=== PATIENT | female | born 1990 | race African-American/Black ===

== ENCOUNTER 2016-10-10 22:10 | Observation (INO) | payer SELFPAY ==
[~2016-10-10] VITALS: Ht 157.5 cm; Wt 56.0 kg
[~2016-10-10 22:10] MED LIST: FERR324T4 PO; IBUP600 PO; OXYC1SOL5 PO; PERI8.6T PO; PREN1CAP20 PO
[2016-10-10 22:20] VITALS: BP 114/65; PULSE 89; RESP 16; TEMP 97.9; O2SAT 95
--- NOTE | 2016-10-10 22:23 | PD ---
HPI . abdominal pain since this morning Chief Complaint: Abdominal Pain Time Seen by Provider: 22:23 Travel History International Travel<30 days: No Contact w/Intl Traveler<30days: No Traveled to known affect area: No History of Present Illness HPI 26-year-old female with no past medical history here with complaints of right sided abdominal pain that onset early this morning. Patient says she developed sudden onset abdominal pain 8/10 without any radiation other than the right side of her abdomen. Patient reports the pain is mainly located in the right upper quadrant, however an examination there is pain throughout her entire abdomen. She expresses to me that there is only pain on the right half of her abdomen. She denies any associated nausea or vomiting. She has no other complaints. She denies any chance of and tells me that her menstrual cycle started yesterday. PFSH Past Medical History Anemia: Yes ?: Not LMP: 10/09/16 : 5 Para: 4 Miscarriage: 0 : 0 Social History Alcohol Use: No Tobacco Use: No Substance Use: Yes (MARIJUANA DAILY) Allergies-Medications (Allergen,Severity, Reaction): Coded Allergies: No Known Allergies (Verified , 10/10/16) Reported Meds & Prescriptions Reported Meds & Active Scripts Active No Active Prescriptions or Reported Medications Review of Systems General / Constitutional: No: Fever Eyes: No: Visual changes HENT: No: Headaches Cardiovascular: No: Chest Pain or Discomfort Respiratory: No: Shortness of Breath Gastrointestinal: Positive: Abdominal Pain Genitourinary: No: Dysuria Musculoskeletal: No: Pain Skin: No Rash Neurologic: No: Weakness Psychiatric: No: Depression Endocrine: No: Polydipsia Hematologic/Lymphatic: No: Easy Bruising Physical Exam Narrative GENERAL: AAO x 3, no acute distress, Well-nourished, well-developed patient. SKIN: Warm and dry. No visible rashes or bruising. HEAD: Normocephalic and atraumatic. EYES: No scleral icterus. No injection or drainage. EOM intact, PERRLA ENT: No nasal drainage noted. Mucous membranes pink. Airway patent. Moist mucous membranes NECK: Supple, trachea midline. No JVD. CARDIOVASCULAR: Regular rate and rhythm without murmurs, gallops, or rubs. RESPIRATORY: Breath sounds equal bilaterally. No accessory muscle use. No rhonchi or rales. GASTROINTESTINAL: Abdomen soft, tenderness throughout the entire abdomen, more prominent in the right upper and right lower quadrant. There is guarding in the right upper quadrant. No rebound. EXTREMITIES: No cyanosis or edema. BACK: No obvious deformity. NEURO: CN II-12 intact, psychological anthropologist strength normal b/l, UE and LE 5/5, no focal deficits PSYCH: AAO x 3, normal affect. Data Data Last Documented VS Vital Signs Date Time Temp Pulse Resp B/P Pulse Ox O2 Delivery O2 Flow Rate FiO2 10/10/16 22:23 17 10/10/16 22:20 97.9 89 114/65 95 Orders Complete Blood Count With Diff (10/10/16 22:23) Comprehensive Metabolic Panel (10/10/16 22:23) Lipase (10/10/16 22:23) Urinalysis - C+S If Indicated (10/10/16 22:23) Ct Abd/Pel W Iv Contrast(Rout) (10/10/16 22:23) Iv Access Insert/Monitor (10/10/16 22:23) Ecg Monitoring (10/10/16 22:23) Oximetry (10/10/16 22:23) Sodium Chloride 0.9% Flush (Ns Flush) (10/10/16 22:30) Ed Urine Pregnancytest Poc (10/10/16 22:23) Ketorolac Inj (Toradol Inj) (10/10/16 22:30) Prothrombin Time / Inr (Pt) (10/10/16 22:33) Act Partial Throm Time (Ptt) (10/10/16 22:33) Iohexol 350 Inj (Omnipaque 350 Inj) (10/11/16 00:19) Place In Observation (10/11/16 ) Vital Signs (Adult) Q4H (10/11/16 00:58) Activity Oob With Assistance (10/11/16 00:58) Binder Coverstitch / Telemetry .CONTINUOUS (10/11/16 00:58) Diet Heart Healthy (10/11/16 Breakfast) Sodium Chloride 0.9% Flush (Ns Flush) (10/11/16 01:00) Sodium Chloride 0.9% Flush (Ns Flush) (10/11/16 09:00) Naloxone Inj (Narcan Inj) (10/11/16 01:00) Admit Order (Ed Use Only) (10/11/16 00:59) Simethicone Chew (Phazyme Chew) (10/11/16 01:00) Labs Laboratory Tests Test 10/10/16 23:00 Prothrombin Time 11.0 SEC Prothromb Time International 1.0 RATIO Ratio Activated Partial 26.7 SEC Thromboplast Time Sodium Level 138 MEQ/L Potassium Level 3.7 MEQ/L Chloride Level 107 MEQ/L Carbon Dioxide Level 22.2 MEQ/L Anion Gap 9 MEQ/L Blood Urea Nitrogen 14 MG/DL Creatinine 0.73 MG/DL Estimat Glomerular Filtration 116 ML/MIN Rate Random Glucose 94 MG/DL Calcium Level 9.1 MG/DL Total Bilirubin 0.7 MG/DL Aspartate Amino Transf 20 U/L (AST/SGOT) Alanine Aminotransferase 21 U/L (ALT/SGPT) Alkaline Phosphatase 54 U/L Total Protein 7.9 GM/DL Albumin 3.6 GM/DL Lipase 77 U/L White Blood Count 9.2 TH/MM3 Red Blood Count 4.30 MIL/MM3 Hemoglobin 9.6 GM/DL Hematocrit 30.6 % Mean Corpuscular Volume 71.0 FL Mean Corpuscular Hemoglobin 22.4 PG Mean Corpuscular Hemoglobin 31.5 % Concent Red Cell Distribution Width 16.8 % Platelet Count 372 TH/MM3 Mean Platelet Volume 8.1 FL Neutrophils (%) (Auto) 81.2 % Lymphocytes (%) (Auto) 9.6 % Monocytes (%) (Auto) 8.5 % Eosinophils (%) (Auto) 0.2 % Basophils (%) (Auto) 0.5 % Neutrophils # (Auto) 7.5 TH/MM3 Lymphocytes # (Auto) 0.9 TH/MM3 Monocytes # (Auto) 0.8 TH/MM3 Eosinophils # (Auto) 0.0 TH/MM3 Basophils # (Auto) 0.0 TH/MM3 CBC Comment DIFF FINAL Differential Comment MDM Medical Decision Making Medical Screen Exam Complete: Yes Emergency Medical Condition: Yes Medical Record Reviewed: Yes Differential Diagnosis Cholelithiasis, cholecystitis, appendicitis, colitis, diverticulitis, constipation, irritable bowel syndrome Narrative Course 26-year-old female here with sudden onset of abdominal pain in the right upper quadrant. On examination patient has diffuse abdominal tenderness to even very light palpation. She does demonstrate some guarding in the right upper quadrant. IV access was obtained, labs, UA and CT of the abdomen and pelvis have been ordered. She reports 8/10 pain. I provided her with some toradol here in the emergency department. Case has been discussed with Dr. Correa. He will make further recommendations pending workup and determine patient's disposition. Scripts No Active Prescriptions or Reported Meds Condition: Stable Angela Wise Oct 10, 2016 22:23
[2016-10-10] MEDS ORDERED: SODIUM CHLORIDE 0.9% FLUSH 10 ML FLUSH IV FLUSH PRN (22:30)
[2016-10-10] MEDS ORDERED: KETOROLAC TROMETHAMINE 30 MG/ML (IVP) VIAL IV PUSH ONE (22:30)
[2016-10-10 23:13] LABS: AUTOMATED NEUTROPHIL # 7.5 TH/MM3 (1.8-7.7); BASOPHIL % 0.5 % (0.0-2.0); EOSINOPHIL % 0.2 % (0.0-4.0); HEMATOCRIT 30.6 % (35.0-46.0); HEMO FLAGS DIFF FINAL; LYMPH % 9.6 % (9.0-44.0); LYMPHOCYTE # 0.9 TH/MM3 (1.0-4.8); MEAN CORPUSCULAR HEMOGLOBIN 22.4 PG (27.0-34.0); MEAN CORPUSCULAR HGB CONC 31.5 % (32.0-36.0); MONO % 8.5 % (0.0-8.0); NEUT % 81.2 % (16.0-70.0); PLATELET COUNT 372 TH/MM3 (150-450); RED CELL DISTRIBUTION WIDTH 16.8 % (11.6-17.2); WHITE BLOOD COUNT 9.2 TH/MM3 (4.0-11.0)
[2016-10-10 23:32] LABS: ANION GAP 9 MEQ/L (5-15); APTT (PATIENT) 26.7 SEC (24.3-30.1); AST (GOT) 20 U/L (15-37); BICARBONATE 22.2 MEQ/L (21.0-32.0); BLOOD UREA NITROGEN 14 MG/DL (7-18); CHLORIDE 107 MEQ/L (98-107); GLOMERULAR FILTRATION RATE 116 ML/MIN (>89); POTASSIUM 3.7 MEQ/L (3.5-5.1); SODIUM (NA) 138 MEQ/L (136-145)
[2016-10-10 23:35] LABS: ALKALINE PHOSPHATASE 54 U/L (45-117); ALT (GPT) 21 U/L (10-53); TOTAL BILIRUBIN ADULT 0.7 MG/DL (0.2-1.0)
[2016-10-11] VITALS (8 sets, daily range): BP systolic 99–115; BP diastolic 55–77; PULSE 75–88; RESP 16–20; TEMP 97.1–99.4; O2SAT 100
[2016-10-11] MEDS ORDERED: IOHEXOL 350 MG/ML 10 ML VIAL (for RAD DIAG) IV ONE (00:19)
--- NOTE | 2016-10-11 00:36 | RADRPT ---
EXAM DATE/TIME: 10/11/2016 00:11 [facility] COMPARISON: No previous studies available for comparison. INDICATIONS : Right side abdominal pain. IV CONTRAST: 100 cc Omnipaque 350 (iohexol) IV ORAL CONTRAST: No oral contrast ingested. RADIATION DOSE: 6.64 CTDIvol (mGy) MEDICAL HISTORY : None SURGICAL HISTORY : section. ENCOUNTER: Initial ACUITY: 1 day PAIN SCALE: 8/10 LOCATION: Right abdomen. TECHNIQUE: Volumetric scanning of the abdomen and pelvis was performed. Using automated exposure control and ad justment of the mA and/or kV according to patient size, radiation dose was kept as low as reasonably achievable to obtain optimal diagnostic quality images. DICOM format image data is available electro nically for review and comparison. FINDINGS: LOWER LUNGS: The visualized lower lungs are clear. LIVER: Homogeneous density without lesion. There is no dilation of the biliary tree. No calcified gallston es. SPLEEN: Normal size without lesion. PANCREAS: Within normal limits. KIDNEYS: Normal in size and shape. There is no mass, stone or hydronephrosis. ADRENAL GLANDS: Within normal limits. VASCULAR: There is no aortic aneurysm. BOWEL/MESENTERY: No evidence of bowel dilatation. No free air or free fluid. Appendix is not identified. Extensive gas is seen within small bowel lumen ABDOMINAL WALL: Within normal limits. RETROPERITONEUM: There is no lymphadenopathy. BLADDER: No wall thickening or mass. REPRODUCTIVE: Within normal limits. INGUINAL: There is no lymphadenopathy or hernia. MUSCULOSKELETAL: Prominent bilateral sacroiliitis with bone erosion and surrounding bony sclerosis. CONCLUSION: 1. Bilateral sacroiliitis. 2. Nonspecific bowel gas pattern with extensive gas in the small bowel lumen but no evidence of bowel dilatation. No free air or free fluid. Emery Garcia MD on October 11, 2016 at 0:22 Board Certified Radiologist. This report was verified electronically.
[2016-10-11] MEDS ORDERED: SODIUM CHLORIDE 0.9% FLUSH 10 ML FLUSH IV FLUSH PRN (01:00)
[2016-10-11] MEDS ORDERED: SIMETHICONE 125 MG CHEWABLE TAB PO ONE (01:00)
[2016-10-11] MEDS ORDERED: NALOXONE HCL 0.4 MG/ML AMP IV PRN (01:00)
--- NOTE | 2016-10-11 01:02 | PD ---
Data Data Last Documented VS Vital Signs Date Time Temp Pulse Resp B/P Pulse Ox O2 Delivery O2 Flow Rate FiO2 10/10/16 22:23 17 10/10/16 22:20 97.9 89 114/65 95 Orders Complete Blood Count With Diff (10/10/16 22:23) Comprehensive Metabolic Panel (10/10/16 22:23) Lipase (10/10/16 22:23) Urinalysis - C+S If Indicated (10/10/16 22:23) Ct Abd/Pel W Iv Contrast(Rout) (10/10/16 22:23) Iv Access Insert/Monitor (10/10/16 22:23) Ecg Monitoring (10/10/16 22:23) Oximetry (10/10/16 22:23) Sodium Chloride 0.9% Flush (Ns Flush) (10/10/16 22:30) Ed Urine Pregnancytest Poc (10/10/16 22:23) Ketorolac Inj (Toradol Inj) (10/10/16 22:30) Prothrombin Time / Inr (Pt) (10/10/16 22:33) Act Partial Throm Time (Ptt) (10/10/16 22:33) Iohexol 350 Inj (Omnipaque 350 Inj) (10/11/16 00:19) Place In Observation (10/11/16 ) Vital Signs (Adult) Q4H (10/11/16 00:58) Activity Oob With Assistance (10/11/16 00:58) Control Tower Operator / Telemetry .CONTINUOUS (10/11/16 00:58) Diet Heart Healthy (10/11/16 Breakfast) Sodium Chloride 0.9% Flush (Ns Flush) (10/11/16 01:00) Sodium Chloride 0.9% Flush (Ns Flush) (10/11/16 09:00) Naloxone Inj (Narcan Inj) (10/11/16 01:00) Labs Laboratory Tests Test 10/10/16 23:00 White Blood Count 9.2 TH/MM3 Red Blood Count 4.30 MIL/MM3 Hemoglobin 9.6 GM/DL Hematocrit 30.6 % Mean Corpuscular Volume 71.0 FL Mean Corpuscular Hemoglobin 22.4 PG Mean Corpuscular Hemoglobin 31.5 % Concent Red Cell Distribution Width 16.8 % Platelet Count 372 TH/MM3 Mean Platelet Volume 8.1 FL Neutrophils (%) (Auto) 81.2 % Lymphocytes (%) (Auto) 9.6 % Monocytes (%) (Auto) 8.5 % Eosinophils (%) (Auto) 0.2 % Basophils (%) (Auto) 0.5 % Neutrophils # (Auto) 7.5 TH/MM3 Lymphocytes # (Auto) 0.9 TH/MM3 Monocytes # (Auto) 0.8 TH/MM3 Eosinophils # (Auto) 0.0 TH/MM3 Basophils # (Auto) 0.0 TH/MM3 CBC Comment DIFF FINAL Differential Comment Prothrombin Time 11.0 SEC Prothromb Time International 1.0 RATIO Ratio Activated Partial 26.7 SEC Thromboplast Time Sodium Level 138 MEQ/L Potassium Level 3.7 MEQ/L Chloride Level 107 MEQ/L Carbon Dioxide Level 22.2 MEQ/L Anion Gap 9 MEQ/L Blood Urea Nitrogen 14 MG/DL Creatinine 0.73 MG/DL Estimat Glomerular Filtration 116 ML/MIN Rate Random Glucose 94 MG/DL Calcium Level 9.1 MG/DL Total Bilirubin 0.7 MG/DL Aspartate Amino Transf 20 U/L (AST/SGOT) Alanine Aminotransferase 21 U/L (ALT/SGPT) Alkaline Phosphatase 54 U/L Total Protein 7.9 GM/DL Albumin 3.6 GM/DL Lipase 77 U/L MDM Supervised Visit with MICHAEL: Yes Differential Diagnosis I, Dr. Correa, have reviewed the advance practice practitioner's documentation and am in agreement, met with the patient face to face, made the diagnosis, and the medical decision making was done by me. See her note for further details. Briefly this is a 26-year-old female was brought in by ambulance for evaluation of abdominal pain. Pain started in her right upper quadrant earlier today and is now more diffuse. She is currently on her menstrual period which started yesterday and she denies having any vaginal discharge other than some bleeding which is normal for her. On exam the patient has diffuse abdominal tenderness. There are no peritoneal signs. Vital signs show heart rate 89, blood pressure 114/65, pulse ox 95% on room air, oral temp of 97.9F. CBC shows WBC 9.2, hemoglobin 9.6, hematocrit 30.6, platelets 376, neutrophils 81%. CMP is unremarkable. Lipase is 77. Urine test is negative. CT abdomen pelvis: Bilateral sacroiliitis. Nonspecific bowel gas pattern with extensive gas in the small bowel lumen but no evidence of bowel dilatation. No free air or free fluid. Patient was given a dose of IV Toradol, and on reassessment she is sleeping in the position. When she wakes up she is clearly in pain and is complaining of pain throughout her entire abdomen. On exam she does have diffuse tenderness. Her abdomen is soft and nondistended. There are no peritoneal signs again. Given ongoing pain, I offered to observe the patient overnight for further treatment and evaluation. She is amenable to this plan. Case discussed with hospitalist Dr. Malik who will admit the patient to her service. Diagnosis Primary Impression: Intractable abdominal pain Admitting Information Admitting Physician Requests: Observation Scripts No Active Prescriptions or Reported Meds Condition: Stable Dre Correa MD Oct 11, 2016 01:02
[2016-10-11 04:02] LABS: BACTERIA, URINE OCC /hpf; BLOOD, URINE MOD (NEG); COMMENT (UR) CULTURE INDICATED; CULTURE IF INDICATED CULTURE INDICATED; GLUCOSE,URINE NEG (NEG); KETONE, URINE NEG (NEG); NITRITE,URINE NEG (NEG); SQUAMOUS EPITHELIAL CELL URINE 4 /hpf (0-5); URINE COLOR YELLOW (YELLW/STRAW)
--- NOTE | 2016-10-11 12:00 | PD.CONS ---
HPI History of Present Illness This is a 26 year old with pmh significant for chronic KAM who presents to the with complaints of acute onset of Right sided pain that started last night. The pain is described as sharp, severe constant. The pain is all over but worse on the right. Denies any other associated symptoms including nausea, vomiting, hematemesis, diarrhea, melena, change in bowels or wt loss. She denies blood thinner, NSAIDs or alcohol use. CT done and that showed 1. Bilateral sacroiliitis. 2. Nonspecific bowel gas pattern with extensive gas in the small bowel lumen but no evidence of bowel dilatation. No free air or free fluid. Labs remarkable for microcytic, hypochromic anemia hh 9.6/30.6. She never had EGD/colonoscopy before. Denies family hx of colon cancer. She was sleepy during the interview and had difficulty staying awake stating she hasn't been getting enough sleep. (Rachelle Arteaga) PFSH Past Medical History Anemia Past Surgical History non (Rachelle rAteaga) Coded Allergies: No Known Allergies (Verified , 10/10/16) Medications Current Medications Medications (Trade) Dose Ordered Sig/Ruddy Route Start Time Stop Time Status Last Admin (NS Flush) 2 ml UNSCH PRN IV FLUSH 10/11/16 01:00 (NS Flush) 2 ml BID IV FLUSH 10/11/16 09:00 (Narcan Inj) 0.4 mg UNSCH PRN IV 10/11/16 01:00 (Toradol Inj) 15 mg Q6H PRN IV PUSH 10/11/16 01:00 10/15/16 19:01 Family History No family hx of colon cancer Social History Alcohol Use: No Tobacco Use: No Substance Use: Yes (MARIJUANA DAILY) (Rachelle Arteaga) GI Exam Vitals I&O Vital Signs Date Time Temp Pulse Resp B/P Pulse Ox O2 Delivery O2 Flow Rate FiO2 10/11/16 08:47 99.4 83 18 104/65 100 10/11/16 03:00 88 10/11/16 02:54 98.5 81 16 107/67 100 10/10/16 22:23 17 10/10/16 22:20 97.9 89 16 114/65 95 Imaging Last Impressions Abdomen/Pelvis CT 10/10/16 4444 Signed Impressions: Service Date/Time: Tuesday, October 11, 2016 00:11 - CONCLUSION: 1. Bilateral sacroiliitis. 2. Nonspecific bowel gas pattern with extensive gas in the small bowel lumen but no evidence of bowel dilatation. No free air or free fluid. Emery Garcia MD Laboratory Test 10/10/16 10/11/16 23:00 01:45 Prothrombin Time 11.0 SEC Prothromb Time International 1.0 RATIO Ratio Activated Partial 26.7 SEC Thromboplast Time Sodium Level 138 MEQ/L Potassium Level 3.7 MEQ/L Chloride Level 107 MEQ/L Carbon Dioxide Level 22.2 MEQ/L Anion Gap 9 MEQ/L Blood Urea Nitrogen 14 MG/DL Creatinine 0.73 MG/DL Estimat Glomerular Filtration 116 ML/MIN Rate Random Glucose 94 MG/DL Calcium Level 9.1 MG/DL Total Bilirubin 0.7 MG/DL Aspartate Amino Transf 20 U/L (AST/SGOT) Alanine Aminotransferase 21 U/L (ALT/SGPT) Alkaline Phosphatase 54 U/L Total Protein 7.9 GM/DL Albumin 3.6 GM/DL Lipase 77 U/L White Blood Count 9.2 TH/MM3 Red Blood Count 4.30 MIL/MM3 Hemoglobin 9.6 GM/DL Hematocrit 30.6 % Mean Corpuscular Volume 71.0 FL Mean Corpuscular Hemoglobin 22.4 PG Mean Corpuscular Hemoglobin 31.5 % Concent Red Cell Distribution Width 16.8 % Platelet Count 372 TH/MM3 Mean Platelet Volume 8.1 FL Neutrophils (%) (Auto) 81.2 % Lymphocytes (%) (Auto) 9.6 % Monocytes (%) (Auto) 8.5 % Eosinophils (%) (Auto) 0.2 % Basophils (%) (Auto) 0.5 % Neutrophils # (Auto) 7.5 TH/MM3 Lymphocytes # (Auto) 0.9 TH/MM3 Monocytes # (Auto) 0.8 TH/MM3 Eosinophils # (Auto) 0.0 TH/MM3 Basophils # (Auto) 0.0 TH/MM3 CBC Comment DIFF FINAL Differential Comment Urine Color YELLOW Urine Turbidity CLEAR Urine pH 7.0 Urine Specific [place] GREATER THAN 1.050 Urine Protein 30 mg/dL Urine Glucose (UA) NEG mg/dL Urine Ketones NEG mg/dL Urine Occult Blood MOD Urine Nitrite NEG Urine Bilirubin NEG Urine Urobilinogen 2.0 MG/DL Urine Leukocyte Esterase TRACE Urine RBC 27 /hpf Urine WBC 8 /hpf Urine Squamous Epithelial 4 /hpf Cells Urine Bacteria OCC /hpf Microscopic Urinalysis Comment CULTURE INDICATED Date/Time Procedure Status Source Growth 10/11/16 01:45 Urine Culture Received Urine Clean Catch Pending Physical Examination HEENT: normocephalic; atraumatic; no jaundice. NECK: Neck is supple, no JVD, no lymphadenopathy. CHEST: Chest is clear to auscultation and percussion. CARDIAC: Regular rate and rhythm with no murmur gallop or rubs. ABDOMEN: Soft, nondistended, severe tenderness to touch, this is diffused but worse on the right ; no hepatosplenomegaly; bowel sounds are present in all four quadrants. EXTREMITIES: No clubbing, cyanosis, or edema. SKIN: Normal; no rash; no jaundice. PEST MANAGEMENT SUPERVISOR: alert and oriented times three. (Rachelle Arteaga) Assessment and Plan Plan - Acute onset of right sided abd pain- unclear etiology, labs normal except for anemia, CT with no evidence of acute abd issues complaints of acute onset of Right sided pain that started last night. The pain is described as sharp, severe constant. The pain is all over but worse on the right. Denies any other associated symptoms including nausea, vomiting, hematemesis, diarrhea, melena, change in bowels or wt loss. She denies blood thinner, NSAIDs or alcohol use. CT done and that showed 1. Bilateral sacroiliitis. 2. Nonspecific bowel gas pattern with extensive gas in the small bowel lumen but no evidence of bowel dilatation. No free air or free fluid. Labs remarkable for microcytic, hypochromic anemia hh 9.6/30.6. She never had EGD/colonoscopy before. Denies family hx of colon cancer. She was sleepy during the interview and had difficulty staying awake stating she hasn't been getting enough sleep. - Chronic KAM- Macrocytic, hypochromic anemia hh 9.6/30.6. CT as above, no bleeding reported, never had EGD/colonoscopy - Smokes weed daily- This could be aggravating her symptoms - Possible UTI, urine cx pending - Sacroiliitis per attending Plan: - JAUN - Will plan for EGD/colonoscopy on Friday - Obtain consents - Golytely on Friday - Clear liquids on Friday - NPO Friday mn - Stools for Hemoccult - Monitor hh - Transfuse as needed - Consider hematology consult pending results above - Might need CE, SBFT - Patient seen and examined by Dr. Sharma and myself and this note is written on his behalf. (Rachelle Arteaga) Physician Comments Patient seen and examined Agree with above Continue with current supportive care Monitor labs Plan for endoscopy on Friday (Ba Sharma MD) Rachelle Arteaga Oct 11, 2016 12:00 Ba Sharma MD Oct 11, 2016 18:58
[2016-10-11] MEDS: SODIUM CHLORIDE 0.9% FLUSH 10 ML FLUSH IV FLUSH SCH ×2 (15:14→20:17)
--- NOTE | 2016-10-11 15:22 | HHI.HP ---
HPI Service [facility] Primary Care Physician No Primary Care Physician Admission Diagnosis Intractable abdominal pain Diagnoses: Chief Complaint: Abdominal pain Travel History International Travel<30 Days: No Contact w/Intl Traveler <30 Da: No Traveled to Known Affected Are: No History of Present Illness Written by Alli Blanco, acting as scribe for Dr. Gómez on 10/11/16 at 15:04. This note was transcribed by [email or web address] Ring. I, Dr. Jabier Gómez personally performed the history, physical exam, and medical decision making; and confirmed the accuracy of the information in the transcribed note. Authenticated by Dr. Jabier Gómez on 10/11/16 at 16:30. 26-year-old female with no significant past medical history who presented with abdominal pain. The patient states that yesterday morning she began having lower right abdominal discomfort. She denies any fever, chills, nausea, vomiting, diarrhea. She's been having normal stools, denies any bleeding. She' s been tolerating oral intake today. She started menstrual cycle 2 days ago. GI has evaluated the patient and is planning on EGD and colonoscopy, patient is agreeable. Review of Systems Except as stated in HPI: all other systems reviewed are Neg Past Family Social History Past Medical History None Past Surgical History Reported Medications None Allergies: Coded Allergies: No Known Allergies (Verified , 10/10/16) Active Ordered Medications Current Medications Medications (Trade) Dose Ordered Sig/Ruddy Route Start Time Stop Time Status Last Admin (NS Flush) 2 ml UNSCH PRN IV FLUSH 10/11/16 01:00 (NS Flush) 2 ml BID IV FLUSH 10/11/16 09:00 (Narcan Inj) 0.4 mg UNSCH PRN IV 10/11/16 01:00 (Toradol Inj) 15 mg Q6H PRN IV PUSH 10/11/16 01:00 10/15/16 19:01 (Colyte Liq) 4,000 ml ONCE ONCE PO 10/13/16 16:00 10/13/16 16:01 Family History Reviewed, no family history pertinent to current chief complaint Social History Patient denies any alcohol, tobacco, or drug use Physical Exam Vital Signs Vital Signs Date Time Temp Pulse Resp B/P Pulse Ox O2 Delivery O2 Flow Rate FiO2 10/11/16 12:04 99.0 81 16 99/55 100 10/11/16 08:47 99.4 83 18 104/65 100 10/11/16 03:00 88 10/11/16 02:54 98.5 81 16 107/67 100 10/10/16 22:23 17 10/10/16 22:20 97.9 89 16 114/65 95 Physical Exam GENERAL: Well-developed well-nourished. In no acute distress. SKIN: Warm and dry. No lesions noted. HEENT: Normocephalic. Pupils equal and round. Mucous membranes pink and moist. CARDIOVASCULAR: Regular rate and rhythm. No murmur appreciated. RESPIRATORY: No accessory muscle use. Clear to auscultation. Breath sounds equal bilaterally. GASTROINTESTINAL: Abdomen soft, nondistended. Moderate generalized TTP. Bowel sounds x4. MUSCULOSKELETAL: No obvious deformities. No clubbing or cyanosis. No edema. NEUROLOGICAL: Awake and alert. No focal neurological deficits. Moves upper and lower extremities spontaneously. Normal speech. PSYCHIATRIC: Appropriate mood and affect; insight and judgment normal. Laboratory Laboratory Tests Test 10/10/16 10/11/16 23:00 01:45 Prothrombin Time 11.0 Prothromb Time International 1.0 Ratio Activated Partial 26.7 Thromboplast Time Sodium Level 138 Potassium Level 3.7 Chloride Level 107 Carbon Dioxide Level 22.2 Anion Gap 9 Blood Urea Nitrogen 14 Creatinine 0.73 Estimat Glomerular Filtration 116 Rate Random Glucose 94 Calcium Level 9.1 Total Bilirubin 0.7 Aspartate Amino Transf 20 (AST/SGOT) Alanine Aminotransferase 21 (ALT/SGPT) Alkaline Phosphatase 54 Total Protein 7.9 Albumin 3.6 Lipase 77 White Blood Count 9.2 Red Blood Count 4.30 Hemoglobin 9.6 Hematocrit 30.6 Mean Corpuscular Volume 71.0 Mean Corpuscular Hemoglobin 22.4 Mean Corpuscular Hemoglobin 31.5 Concent Red Cell Distribution Width 16.8 Platelet Count 372 Mean Platelet Volume 8.1 Neutrophils (%) (Auto) 81.2 Lymphocytes (%) (Auto) 9.6 Monocytes (%) (Auto) 8.5 Eosinophils (%) (Auto) 0.2 Basophils (%) (Auto) 0.5 Neutrophils # (Auto) 7.5 Lymphocytes # (Auto) 0.9 Monocytes # (Auto) 0.8 Eosinophils # (Auto) 0.0 Basophils # (Auto) 0.0 CBC Comment DIFF FINAL Differential Comment Urine Color YELLOW Urine Turbidity CLEAR Urine pH 7.0 Urine Specific [place] GREATER THAN 1.050 Urine Protein 30 Urine Glucose (UA) NEG Urine Ketones NEG Urine Occult Blood MOD Urine Nitrite NEG Urine Bilirubin NEG Urine Urobilinogen 2.0 Urine Leukocyte Esterase TRACE Urine RBC 27 Urine WBC 8 Urine Squamous Epithelial 4 Cells Urine Bacteria OCC Microscopic Urinalysis Comment CULTURE INDICATED Date/Time Procedure Status Source Growth 10/11/16 01:45 Urine Culture Received Urine Clean Catch Pending Result Diagram: 10/10/16229910/10/162299 Imaging Last Impressions Abdomen/Pelvis CT 10/10/162222 Signed Impressions: Service Date/Time: Tuesday, October 11, 2016 00:11 - CONCLUSION: 1. Bilateral sacroiliitis. 2. Nonspecific bowel gas pattern with extensive gas in the small bowel lumen but no evidence of bowel dilatation. No free air or free fluid. Emery Garcia MD Assessment and Plan Assessment and Plan 26-year-old female with no significant past medical history who presented with abdominal pain Intractable abdominal pain: Unclear etiology. Reviewed: Abdominal CT showed nonspecific bowel gas pattern and sacroiliitis. Afebrile with no leukocytosis. Lipase and LFTs within normal limits. -GI consulted, planning on EGD and colonoscopy -Stool Hemoccult ordered -Check abdominal ultrasound to rule out appendicitis or cholecystitis -IV Toradol as needed for pain -Start oral Protonix Microcytic anemia: Chronic. Hemoglobin 9.6, previously 7.7 on 11/05/15. -Check iron studies -Follow up CBC Abnormal UA: UA with moderate blood and increased RBCs, likely secondary to menstruation. -Follow up urine culture DVT prophylaxis: SCDs Discussed Condition With Patient Alli Blanco Oct 11, 2016 15:22 Sumeet Gómez DO Oct 11, 2016 16:30
--- NOTE | 2016-10-11 17:44 | RADRPT ---
EXAM DATE/TIME: 10/11/2016 17:18 [facility] COMPARISON: CT ABDOMEN & PELVIS W CONTRAST, October 11, 2016, 0:11. INDICATIONS : Right lower quadrant pain. MEDICAL HISTORY : . Anxiety. Anemia. Blood transfusion. SURGICAL HISTORY : section. ENCOUNTER: Initial ACUITY: 1 day PAIN SCORE: 10/10 LOCATION: Right lower quadrant AREA EVALUATED: Right lower quadrant. FINDINGS: The appendix is not seen CONCLUSION: Inconclusive Erick Kaur MD on October 11, 2016 at 17:41 Board Certified Radiologist. This report was verified electronically.
[2016-10-11] MEDS: PANTOPRAZOLE SOD 40 MG DELAYED RELEASE TAB PO SCH (17:57)
[2016-10-11] MEDS: KETOROLAC TROMETHAMINE 30 MG/ML (IVP) VIAL IV PUSH PRN (17:58)
--- NOTE | 2016-10-11 18:01 | RADRPT ---
EXAM DATE/TIME: 10/11/2016 17:06 [facility] COMPARISON: No previous studies available for comparison. INDICATIONS : Right upper quadrant pain. MEDICAL HISTORY : . Anxiety. Anemia. Blood transfusion. SURGICAL HISTORY : section. ENCOUNTER: Initial ACUITY: 1 day PAIN SCORE: 9/10 LOCATION: Right upper quadrant MEASUREMENTS: LIVER: 15.1 cm length COMMON DUCT: 2 mm RIGHT KIDNEY: 10.3 x 6.2 x 4.2 cm FINDINGS: The gallbladder is intact without any evidence for gallstones, gallbladder wall thickening, or perich olecystic fluid. The visualized liver, head of the pancreas, and right kidney appear grossly intact for technique. There is a small 3-4 mm gallbladder wall polyp. CONCLUSION: Probable gallbladder wall polyp. Sudhakar Saucedo MD on October 11, 2016 at 17:59 Board Certified Radiologist. This report was verified electronically.
[2016-10-11 20:51] LABS: AUTOMATED NEUTROPHIL # 3.3 TH/MM3 (1.8-7.7); BASOPHIL % 0.4 % (0.0-2.0); EOSINOPHIL # 0.1 TH/MM3 (0-0.4); EOSINOPHIL % 1.8 % (0.0-4.0); HEMATOCRIT 29.3 % (35.0-46.0); HEMO FLAGS DIFF FINAL; LYMPH % 23.8 % (9.0-44.0); LYMPHOCYTE # 1.2 TH/MM3 (1.0-4.8); MEAN CELL VOLUME 71.8 FL (80.0-100.0); MEAN CORPUSCULAR HEMOGLOBIN 22.2 PG (27.0-34.0); MEAN CORPUSCULAR HGB CONC 30.9 % (32.0-36.0); MONO % 10.4 % (0.0-8.0); NEUT % 63.6 % (16.0-70.0); PLATELET COUNT 384 TH/MM3 (150-450); RED BLOOD COUNT 4.08 MIL/MM3 (4.00-5.30); RED CELL DISTRIBUTION WIDTH 17.1 % (11.6-17.2); WHITE BLOOD COUNT 5.1 TH/MM3 (4.0-11.0)
[2016-10-11 21:06] LABS: BICARBONATE 24.4 MEQ/L (21.0-32.0)
[2016-10-11] MEDS ORDERED: POTASSIUM CHLORIDE 25 MEQ EFFERVESCENT TAB PO ONE (22:45)
[2016-10-12] VITALS (8 sets, daily range): BP systolic 94–111; BP diastolic 54–72; PULSE 52–84; RESP 16–20; TEMP 97.5–98.9; O2SAT 98–100
[2016-10-12] MEDS: KETOROLAC TROMETHAMINE 30 MG/ML (IVP) VIAL IV PUSH PRN (03:01)
[2016-10-12 06:54] LABS: ANION GAP 6 MEQ/L (5-15); BICARBONATE 23.8 MEQ/L (21.0-32.0); BLOOD UREA NITROGEN 12 MG/DL (7-18); CHLORIDE 109 MEQ/L (98-107); FERRITIN 35 NG/ML (8-252); GLOMERULAR FILTRATION RATE 188 ML/MIN (>89); POTASSIUM 4.1 MEQ/L (3.5-5.1); SODIUM (NA) 139 MEQ/L (136-145); TRANSFERRIN IRON PROFILE 254 MG/DL (200-360)
[2016-10-12] MEDS ORDERED: FERROUS SULFATE 325 MG (65 MG ELEMENTAL IRON) TAB PO SCH (09:00)
[2016-10-12] MEDS: SODIUM CHLORIDE 0.9% FLUSH 10 ML FLUSH IV FLUSH SCH (10:31)
[2016-10-12] MEDS: PANTOPRAZOLE SOD 40 MG DELAYED RELEASE TAB PO SCH (10:31)
--- NOTE | 2016-10-12 10:37 | HHI.PR ---
Subjective Remarks Follow-up for abdominal pain. The patient reports resolution of her symptoms overnight. She denies any further abdominal pain. She has been tolerating diet. She denies any diarrhea or constipation. She denies any dysuria. She states that she actually has health insurance, and would rather follow up outpatient with gastroenterology if possible. Objective Vitals Vital Signs Date Time Temp Pulse Resp B/P Pulse Ox O2 Delivery O2 Flow Rate FiO2 10/12/16 09:04 98.7 74 16 111/71 100 10/12/16 05:20 98.9 56 20 105/68 100 10/12/16 04:52 69 10/12/16 03:36 52 10/12/16 01:47 71 109/72 10/12/16 01:30 97.6 75 19 94/54 98 10/11/16 23:34 75 10/11/16 19:41 97.1 75 20 102/61 100 10/11/16 16:48 99.4 76 18 115/77 100 10/11/16 12:04 99.0 81 16 99/55 100 Result Diagram: 10/11/16 1908 10/12/16 0543 Imaging Last Impressions Gall Bladder Ultrasound 10/11/16 1515 Signed Impressions: Service Date/Time: Tuesday, October 11, 2016 17:06 - CONCLUSION: Probable gallbladder wall polyp. K. Po Saucedo MD Abdomen Ultrasound 10/11/16 0000 Signed Impressions: Service Date/Time: Tuesday, October 11, 2016 17:18 - CONCLUSION: Inconclusive Erick Kaur MD Abdomen/Pelvis CT 10/10/16 2223 Signed Impressions: Service Date/Time: Tuesday, October 11, 2016 00:11 - CONCLUSION: 1. Bilateral sacroiliitis. 2. Nonspecific bowel gas pattern with extensive gas in the small bowel lumen but no evidence of bowel dilatation. No free air or free fluid. Emery Garcia MD Objective Remarks GENERAL: Well-developed well-nourished thin patient. In no acute distress. SKIN: Warm and dry. No lesions noted. HEENT: Normocephalic. Pupils equal and round. Mucous membranes pink and moist. CARDIOVASCULAR: Regular rate and rhythm. No murmur appreciated. RESPIRATORY: No accessory muscle use. Clear to auscultation. Breath sounds equal bilaterally. GASTROINTESTINAL: Abdomen soft, non-tender, nondistended. Bowel sounds x4. MUSCULOSKELETAL: No obvious deformities. No clubbing or cyanosis. No edema. NEUROLOGICAL: Awake and alert. No focal neurological deficits. Moves upper and lower extremities spontaneously. Normal speech. PSYCHIATRIC: Appropriate mood and affect; insight and judgment normal. A/P Assessment and Plan 26-year-old female with no significant past medical history who presented with abdominal pain Intractable abdominal pain: Unclear etiology, although timing could suggest due to menstrual cramps. Symptoms resolved. Reviewed: Abdominal CT showed nonspecific bowel gas pattern and sacroiliitis. Afebrile with no leukocytosis. Lipase and LFTs within normal limits. Abdominal ultrasound showed gallbladder wall polyp, non-visualization of the appendix, otherwise unremarkable. -GI consulted, recommended EGD and colonoscopy -Continue Protonix Microcytic anemia: Chronic. Hemoglobin 9.6, previously 7.7 on 11/05/15. -Iron studies suggestive of KAM, start supplementation -Hemoglobin stable on repeat CBC Abnormal UA: UA appears contaminated with moderate blood, 4 squamous epithelial cells, and increased RBCs. Afebrile with no leukocytosis. Doubt infection, likely secondary to menstruation. -Follow up urine culture - showed mixed melania, no indication for antibiotics Hypokalemia: Potassium was 3.8. Replace orally. Potassium now 4.1. Magnesium within normal limits. Resolved. DVT prophylaxis: SCDs Discharge Planning Discussed with Dr. Gómez Discharge patient to home Condition on discharge: Improved Regular Diet as tolerated Regular activity Rx written: Protonix, ferrous sulfate Follow-up with primary care physician and gastroenterology Alli Blanco Oct 12, 2016 10:37 Alli Blanco Oct 12, 2016 10:37
[2016-10-12] MEDS ORDERED: FERR325T20 PO (10:38)
[2016-10-12] MEDS ORDERED: PANT40TA3 PO (10:38)
[2016-10-13] MEDS ORDERED: CARA1TAB6 PO (01:39)
[2016-10-13] MEDS ORDERED: PROT40TA PO (01:39)
[2016-10-13] MEDS ORDERED: DICY10 PO (01:39)
[2016-10-13] MEDS ORDERED: PEG (High)/E-LYTE SOLN 4000 ML BTL PO ONE (16:00)
== END 2016-10-12 14:38 | disposition home or self-care (01) ==
LOC: NEPC 22:10 → NEDA 10-11 01:00 → NEPGCP 10-11 02:46
PROVIDERS: ADMIT Hospitalist; ATTEND Hospitalist
DX: E87.6 Hypokalemia (principal); F12.90 Cannabis use, unspecified, uncomplicated; D50.9 Iron deficiency anemia, unspecified; M46.1 Sacroiliitis, not elsewhere classified
CPT/HCPCS: 74177; 76705; 80048; 80053; 81001; 82728; 83540; 83550; 83690; 83735; 84703; 85025; 85610; 85730; 87086; 96374; 99285; G0378; J1885; Q9967

== ENCOUNTER 2016-10-12 22:56 | Emergency (ER) | payer SELFPAY ==
[~2016-10-12] VITALS: Ht 157.5 cm; Wt 42.2 kg
[~2016-10-12 22:56] MED LIST changes: -FERR324T4 PO; +FERR325T20 PO; -IBUP600 PO; -OXYC1SOL5 PO; +PANT40TA3 PO; -PERI8.6T PO; -PREN1CAP20 PO
[2016-10-12 22:57] VITALS: BP 99/52; PULSE 93; RESP 16; TEMP 99.8; O2SAT 97
[2016-10-12] MEDS ORDERED: SODIUM CHLOR 0.9% 1000 ML INJ 1,000 ML IV SCH (23:32)
--- NOTE | 2016-10-12 23:40 | PD ---
HPI Chief Complaint: Abdominal Pain Time Seen by Provider: 23:23 Travel History International Travel<30 days: No Contact w/Intl Traveler<30days: No Traveled to known affect area: No History of Present Illness HPI 26-year-old female complains of abdominal pain with nausea vomiting. Patient states that the symptoms started 2 days ago. Patient was seen in emergency room and admitted overnight for intractable abdominal pain. CT abdomen and pelvis and blood tests were unremarkable. Patient was discharged home this morning. Patient was given prescription for iron pills and Protonix. Patient has not filled the prescriptions. Patient states that the pain cramping pain and sharp pain most localized around the epigastric upper abdomen. Patient denies any pain radiation. Patient denies any fever chills. Patient denies any dysuria or frequency. Patient denies any vaginal discharge or bleeding. Patient states that the pain has been intermittent. On a scale of 1-10 the pain is a 10. PFSH Past Medical History Anemia: Yes Blood Disorders: No Anxiety: Yes Depression: No Heart Rhythm Problems: No Cancer: No Cardiovascular Problems: No High Cholesterol: No Chest Pain: No Congestive Heart Failure: No Endocrine: No Genitourinary: No Immune Disorder: No Musculoskeletal: No Neurologic: No Reproductive: Yes Respiratory: No Thyroid Disease: No ?: Not LMP: 10/12/16 : 7 Para: 8 Miscarriage: 0 : 0 Past Surgical History Abdominal Surgery: Yes (C-SECT) Section: Yes Other Surgery: Yes (c-s x 1 2015) Social History Alcohol Use: No Tobacco Use: No Substance Use: Yes (MARIJUANA rarely) Allergies-Medications (Allergen,Severity, Reaction): Coded Allergies: No Known Allergies (Verified , 10/10/16) Reported Meds & Prescriptions Reported Meds & Active Scripts Active Pantoprazole (Pantoprazole Sodium) 40 Mg Tab 40 Mg PO DAILY Ferosul (Ferrous Sulfate) 325 Mg Tablet 325 Mg PO DAILY May cause constipation, okay to take stool softener with this medication. Review of Systems General / Constitutional: No: Fever Eyes: No: Visual changes HENT: No: Headaches Cardiovascular: No: Chest Pain or Discomfort Respiratory: No: Shortness of Breath Gastrointestinal: Positive: Nausea, Vomiting, Abdominal Pain Genitourinary: No: Dysuria Musculoskeletal: No: Pain Skin: No Rash Neurologic: No: Weakness Psychiatric: No: Depression Endocrine: No: Polydipsia Hematologic/Lymphatic: No: Easy Bruising Physical Exam Narrative GENERAL: Well-nourished, well-developed patient. SKIN: Focused skin assessment warm/dry. HEAD: Normocephalic. EYES: No scleral icterus. No injection or drainage. NECK: Supple, trachea midline. No JVD or lymphadenopathy. CARDIOVASCULAR: Regular rate and rhythm without murmurs, gallops, or rubs. RESPIRATORY: Breath sounds equal bilaterally. No accessory muscle use. GASTROINTESTINAL: Abdomen soft, nondistended. Patient has moderate tenderness on palpation epigastric area. No rebound tenderness. No mass. MUSCULOSKELETAL: No cyanosis, or edema. BACK: Nontender without obvious deformity. No CVA tenderness. Neurologic exam normal. Data Data Last Documented VS Vital Signs Date Time Temp Pulse Resp B/P Pulse Ox O2 Delivery O2 Flow Rate FiO2 10/12/16 22:57 99.8 93 16 99/52 97 Room Air Orders Beta Hcg (Quant/Titer) (10/12/16 23:32) Complete Blood Count With Diff (10/12/16 23:32) Comprehensive Metabolic Panel (10/12/16 23:32) Lipase (10/12/16 23:32) Urinalysis - C+S If Indicated (10/12/16 23:32) Ct Abd/Pel W Iv Contrast(Rout) (10/12/16 23:32) Iv Access Insert/Monitor (10/12/16 23:32) Ecg Monitoring (10/12/16 23:32) Oximetry (10/12/16 23:32) Morphine Inj (Morphine Inj) (10/12/16 23:45) Ondansetron Inj (Zofran Inj) (10/12/16 23:45) Pantoprazole Inj (Protonix Inj) (10/12/16 23:45) Sodium Chlor 0.9% 1000 Ml Inj (Ns 1000 M (10/12/16 23:32) Ed Urine Pregnancytest Poc (10/12/16 23:32) Al-Mag Hy-Si 40-40-4 Mg/Ml Liq (Mag-Al P (10/12/16 23:45) Kdmyq-Ozsdvx-Zueggf-Pb Liq ( Liq (10/12/16 23:45) MDM Medical Decision Making Medical Screen Exam Complete: Yes Emergency Medical Condition: Yes Differential Diagnosis Differential diagnosis including gastritis, PUD, pancreatitis, cholecystitis, colitis, UTI, pyelonephritis, nephrolithiasis. Narrative Course 26-year-old female with persistent abdominal pain, nausea vomiting. Normal saline solution 1 25 cc an hour. Protonix 40 mg IV. Maalox 30 cc by mouth. 10 cc by mouth. Morphine 2 mg IV. Zofran 4 mg IV. Adam Bates MD Oct 12, 2016 23:40
[2016-10-12] MEDS ORDERED: ALUMINUM/MAGNESIUM/SIMETH 30 ML CUP PO ONE (23:45)
[2016-10-12] MEDS ORDERED: ONDANSETRON HCL 4 MG/2 ML VIAL IVP ONE (23:45)
[2016-10-12] MEDS ORDERED: PANTOPRAZOLE SODIUM 40 MG VIAL IVP ONE (23:45)
[2016-10-12] MEDS ORDERED: ATROPINE/SCOPOLAM/HYOSCYAM/PB ELIXIR 10 ML CUP PO ONE (23:45)
[2016-10-12] MEDS ORDERED: MORPHINE SULFATE 4 MG/ML INJ IV PUSH ONE (23:45)
[2016-10-13 00:12] LABS: AUTOMATED NEUTROPHIL # 6.8 TH/MM3 (1.8-7.7); BASOPHIL % 0.2 % (0.0-2.0); EOSINOPHIL % 0.4 % (0.0-4.0); HEMATOCRIT 29.6 % (35.0-46.0); HEMO FLAGS DIFF FINAL; LYMPH % 7.9 % (9.0-44.0); LYMPHOCYTE # 0.7 TH/MM3 (1.0-4.8); MEAN CELL VOLUME 72.7 FL (80.0-100.0); MEAN CORPUSCULAR HEMOGLOBIN 22.3 PG (27.0-34.0); MEAN CORPUSCULAR HGB CONC 30.7 % (32.0-36.0); NEUT % 82.5 % (16.0-70.0); PLATELET COUNT 440 TH/MM3 (150-450); RED BLOOD COUNT 4.08 MIL/MM3 (4.00-5.30); RED CELL DISTRIBUTION WIDTH 16.9 % (11.6-17.2); WHITE BLOOD COUNT 8.3 TH/MM3 (4.0-11.0)
[2016-10-13 00:30] VITALS: BP 100/54; PULSE 86; RESP 14; O2SAT 99
[2016-10-13 00:39] LABS: ALT (GPT) 17 U/L (10-53); ANION GAP 7 MEQ/L (5-15); AST (GOT) 17 U/L (15-37); BICARBONATE 25.5 MEQ/L (21.0-32.0); BLOOD UREA NITROGEN 13 MG/DL (7-18); CHLORIDE 106 MEQ/L (98-107); GLOMERULAR FILTRATION RATE 114 ML/MIN (>89); SODIUM (NA) 138 MEQ/L (136-145)
[2016-10-13 00:43] LABS: ALKALINE PHOSPHATASE 62 U/L (45-117); BETA HCG QUANT LESS THAN 1 MIU/ML (0-5); TOTAL BILIRUBIN ADULT 0.3 MG/DL (0.2-1.0)
[2016-10-13] MEDS ORDERED: IOHEXOL 350 MG/ML 10 ML VIAL (for RAD DIAG) IV ONE (00:56)
--- NOTE | 2016-10-13 01:15 | RADRPT ---
EXAM DATE/TIME: 10/13/2016 00:57 [facility] COMPARISON: CT ABDOMEN & PELVIS W CONTRAST, October 11, 2016, 0:11. INDICATIONS : Diffuse abdominal pain with vomiting - worsening since yesterday. IV CONTRAST: 95 cc Omnipaque 350 (iohexol) IV ORAL CONTRAST: No oral contrast ingested. RADIATION DOSE: 4.51 CTDIvol (mGy) MEDICAL HISTORY : None SURGICAL HISTORY : section. ENCOUNTER: Subsequent ACUITY: 3 days PAIN SCALE: 8/10 LOCATION: Bilateral abdomen TECHNIQUE: Volumetric scanning of the abdomen and pelvis was performed. Using automated exposure control and ad justment of the mA and/or kV according to patient size, radiation dose was kept as low as reasonably achievable to obtain optimal diagnostic quality images. DICOM format image data is available electro nically for review and comparison. FINDINGS: LOWER LUNGS: The visualized lower lungs are clear. LIVER: Homogeneous density without lesion. There is no dilation of the biliary tree. No calcified gallston es. SPLEEN: Normal size without lesion. PANCREAS: Within normal limits. KIDNEYS: Normal in size and shape. There is no mass, stone or hydronephrosis. ADRENAL GLANDS: Within normal limits. VASCULAR: There is no aortic aneurysm. BOWEL/MESENTERY: The stomach, small bowel, and colon demonstrate no acute abnormality. There is no free intraperitone al air or fluid. ABDOMINAL WALL: Within normal limits. RETROPERITONEUM: There is no lymphadenopathy. BLADDER: No wall thickening or mass. REPRODUCTIVE: Within normal limits. INGUINAL: There is no lymphadenopathy or hernia. MUSCULOSKELETAL: Both sacroiliac joints appear sclerotic and irregular, stable. CONCLUSION: Normal examination. Jaskaran Swanson MD on October 13, 2016 at 1:13 Board Certified Radiologist. This report was verified electronically.
[2016-10-13] MEDS ORDERED: PROT40TA PO (01:39)
[2016-10-13] MEDS ORDERED: DICY10 PO (01:39)
[2016-10-13] MEDS ORDERED: CARA1TAB6 PO (01:39)
--- NOTE | 2016-10-13 01:39 | PD ---
Physical Exam Time Seen by Provider: 01:36 Narrative Patient is signed out to me with CT imaging pending. Please refer to previous providers documentation for details patient's current visit. Data Data Last Documented VS Vital Signs Date Time Temp Pulse Resp B/P Pulse Ox O2 Delivery O2 Flow Rate FiO2 10/13/16 01:44 88 14 104/48 98 Room Air 10/12/16 22:57 99.8 Orders Beta Hcg (Quant/Titer) (10/12/16 23:32) Complete Blood Count With Diff (10/12/16 23:32) Comprehensive Metabolic Panel (10/12/16 23:32) Lipase (10/12/16 23:32) Ct Abd/Pel W Iv Contrast(Rout) (10/12/16 23:32) Iv Access Insert/Monitor (10/12/16 23:32) Ecg Monitoring (10/12/16 23:32) Oximetry (10/12/16 23:32) Morphine Inj (Morphine Inj) (10/12/16 23:45) Ondansetron Inj (Zofran Inj) (10/12/16 23:45) Pantoprazole Inj (Protonix Inj) (10/12/16 23:45) Sodium Chlor 0.9% 1000 Ml Inj (Ns 1000 M (10/12/16 23:32) Ed Urine Pregnancytest Poc (10/12/16 23:32) Al-Mag Hy-Si 40-40-4 Mg/Ml Liq (Mag-Al P (10/12/16 23:45) Ujdll-Smbjag-Kixywp-Pb Liq ( Liq (10/12/16 23:45) Iohexol 350 Inj (Omnipaque 350 Inj) (10/13/16 00:56) Labs Laboratory Tests Test 10/12/16 23:46 White Blood Count 8.3 TH/MM3 Red Blood Count 4.08 MIL/MM3 Hemoglobin 9.1 GM/DL Hematocrit 29.6 % Mean Corpuscular Volume 72.7 FL Mean Corpuscular Hemoglobin 22.3 PG Mean Corpuscular Hemoglobin 30.7 % Concent Red Cell Distribution Width 16.9 % Platelet Count 440 TH/MM3 Mean Platelet Volume 7.8 FL Neutrophils (%) (Auto) 82.5 % Lymphocytes (%) (Auto) 7.9 % Monocytes (%) (Auto) 9.0 % Eosinophils (%) (Auto) 0.4 % Basophils (%) (Auto) 0.2 % Neutrophils # (Auto) 6.8 TH/MM3 Lymphocytes # (Auto) 0.7 TH/MM3 Monocytes # (Auto) 0.7 TH/MM3 Eosinophils # (Auto) 0.0 TH/MM3 Basophils # (Auto) 0.0 TH/MM3 CBC Comment DIFF FINAL Differential Comment Sodium Level 138 MEQ/L Potassium Level 4.0 MEQ/L Chloride Level 106 MEQ/L Carbon Dioxide Level 25.5 MEQ/L Anion Gap 7 MEQ/L Blood Urea Nitrogen 13 MG/DL Creatinine 0.74 MG/DL Estimat Glomerular Filtration 114 ML/MIN Rate Random Glucose 90 MG/DL Calcium Level 8.8 MG/DL Total Bilirubin 0.3 MG/DL Aspartate Amino Transf 17 U/L (AST/SGOT) Alanine Aminotransferase 17 U/L (ALT/SGPT) Alkaline Phosphatase 62 U/L Total Protein 8.1 GM/DL Albumin 3.4 GM/DL Lipase 126 U/L Human Chorionic Gonadotropin, LESS THAN 1 Quant MIU/ML [facility] Medical Record Reviewed: Yes Supervised Visit with MICHAEL: No Narrative Course Last Impressions Abdomen/Pelvis CT 10/12/16 0552 Signed Impressions: Service Date/Time: Thursday, October 13, 2016 00:57 - CONCLUSION: Normal examination. Jaskaran Swanson MD Was discussed with previous provider. CT imaging is negative. Patient will be discharged home with Carafate, Bentyl, and Protonix. 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 Diagnosis Primary Impression: Recurrent abdominal pain Additional Impression: Gastroenteritis Referrals: Primary Care Physician Patient Instructions: Diet for Stomach Ulcers and Gastritis (ED), General Instructions Additional Instruction: AVOID ACIDIC AND ABRASIVE FOODS FILL YOUR MEDICATIONS AND TAKE THEM PRESCRIBED SEEK GASTROENTEROLOGY EVALUATION FOLLOW UP WITH YOUR PRIMARY CARE PROVIDER RETURN TO ED WITH ACUTE WORSENING OF SYMPTOMS Med/Other Pt SpecificInfo: Prescription(s) given Scripts Dicyclomine (Bentyl)10 Mg Cap10 Mg PO TID PRN (Bowel Management) #15 CAP Ref 0 Prov:Juhi Valencia 10/13/16 Pantoprazole (Protonix)40 Mg Tab40 Mg PO DAILY #14 TAB Ref 0 Prov:Juhi Valencia 10/13/16 Sucralfate (Carafate)1 Gm Tab1 Gm PO TID PRN (INDIGESTION) #90 TAB Ref 0 On empty stomach Prov:Juhi Valencia 10/13/16 Disposition: 01 DISCHARGE HOME Condition: Stable Juhi Valencia Oct 13, 2016 01:39
[2016-10-13 01:44] VITALS: BP 104/48; PULSE 88; RESP 14; O2SAT 98
== END 2016-10-13 01:53 | disposition home or self-care (01) ==
LOC: NEPD 22:56
DX: K52.9 Noninfective gastroenteritis and colitis, unspecified (principal)
CPT/HCPCS: 74177; 80053; 83690; 84702; 84703; 85025; 96374; 96375; 99285; C9113; J2270; J2405; J7030; Q9967